=== PATIENT | male | born 1995 | race Caucasian/White ===

== ENCOUNTER 2017-08-29 17:26 | Emergency (ER) | payer OTHER, BC ==
[2017-08-29] MEDS ORDERED: Lidocaine 2% with EPINEPHrine 1:100,000 20 ML MDV INFILT ONE (17:27)
[2017-08-29] MEDS ORDERED: Sodium Chloride 0.9% 1,000 ML IV ONE (17:59)
[2017-08-29] MEDS ORDERED: Acetaminophen/HYDROcodone 325-5 MG Tab PO ONE (21:23)
--- NOTE | 2017-08-30 13:24 | CT ---
INDICATION: 2,000-pound engine block tipped off stand and fell onto left lateral chest. Superficial laceration. No evidence for pneumothorax clinically. Chest wall contusion clinically. CT CHEST WITHOUT CONTRAST: Spiral 2.5-mm axial sections were obtained through the chest with sagittal and coronal reconstructions, 08/29/2017. No comparisons were available. Total Exam DLP = 340.49 mGy-cm. An active infiltrate, effusion, contusion, or pneumothorax was not identified. No rib fractures were identified. The spine appears to be intact. No mediastinal masses or free fluid collections were identified. Upper abdomen was grossly normal. In the subcutaneous tissues of the lower neck and anterior shoulder, there is evidence of free air within those tissues, suggesting a significant soft tissue laceration in that area. This is at the level of the clavicle and extends to the level of the inferior glenoid labrum on the left. No other specific abnormalities were identified. IMPRESSION: Subcutaneous air is noted in the area of injury on the left, anteriorly on the left in the subcutaneous tissues and surrounding muscle bundles, at the level of the clavicle and shoulder. Report was called to Dr. Franklin at 1905 hours, 08/29/2017. [facility]
--- NOTE | 2017-08-30 15:13 | ER ---
DATE SEEN: 08/29/2017 TIME SEEN: The patient was seen at 1750 hours. HISTORY OF PRESENT ILLNESS: Oscar was working at [employer], and he happened to experience a [id number] engine fall off its stand and struck him on the left chest. No shortness of breath. He has a laceration to the anterior chest. His tetanus is up to date. ALLERGIES: No allergies. PAST MEDICAL HISTORY: No other serious illnesses. No hospitalizations or surgeries. REVIEW OF SYSTEMS: Negative. PRIMARY SURVEY: 1. Airway, intact air exchange. Patent airway. 2. Breathing, bilateral breath sounds. No absence of breath sounds. Good symmetrical motion of the chest. No tracheal tug or tracheal deviation. 3. CARDIOVASCULAR: The patient's blood pressure 145/71, heart rate 80, respirations 18, oxygen saturation 100%, and temperature 36.1 degrees centigrade. The patient has good peripheral pulses. He is alert and talking to me. 4. Deformity-[place] scale is 15. The patient is alert. No difficulty breathing. 5. EXTREMITIES-No evidence for ecchymosis, swelling, tenderness, or chest wall asymmetry on his chest. He has a laceration to left anterior chest, 9 cm long. It is anterior upper lateral pectoral region. No crepitus noted. PHYSICAL EXAMINATION: VITAL SIGNS: As noted. HEENT: Alert. PERRLA intact. Pharynx without abnormality. Gag intact. He has no accessory muscle of breathing. LUNGS: Clear on auscultation without rales, rhonchi, or wheezes. HEART: S1, S2. No murmur. ABDOMEN: Soft. No guarding. CHEST: No chest wall tenderness. No subcutaneous crepitans. EXTREMITIES: Without abnormality. Deep tendon reflexes normal in upper and lower extremities. Strength in the upper and lower extremities intact. NEUROLOGIC: Cranial nerves 2 through 12 intact. Oriented x3. IMAGING: Chest wall CT, no evidence for contusion, compromise of chest wall. No pneumothorax, no hemothorax, and no hemopericardium. No abnormality of the great vessels. PROCEDURE: The wound was cleansed generously with water for 10 minutes with surgical scrub brush and then injected with 2% lidocaine with epinephrine. Once the anesthesia was appropriate, the wound edges were freshened up by removing 3 mm of each wound edge. This 9 cm wound became a 10 cm wound. Then, the wound was closed with interrupted 3-0 Vicryl subcuticular stitches, 8 stitches, and then 9 interrupted 4-0 Ethilon stitches of the dermis. The patient tolerated the procedure well. He has mild discomfort of his chest wall. No morbidities. No pneumothorax. No hemothorax or hemopericardium. DIAGNOSES: 1. Left chest contusion. 2. Left chest 10 centimeter laceration, double layer closure. PLAN: The patient is cardiovascularly stable. Sutures to stay in for 14 days. Use bacitracin on a daily basis and may shower. Follow up with his doctor in a week. Additional note, there was mild air within the left upper chest subcutaneous tissue on the CAT scan. /[id number] FRANKO/CASSIE AUGUSTINE
== END 2017-08-29 21:40 | disposition home or self-care (01) ==
LOC: FB.ED 17:26
DX: S21.112A Laceration without foreign body of left front wall of thorax without penetration into thoracic cavity, initial encounter (principal); W20.8XXA Other cause of strike by thrown, projected or falling object, initial encounter; Y92.79 Other farm location as the place of occurrence of the external cause; Y99.9 Unspecified external cause status
CPT/HCPCS: 12034; 71250; 96360; 99283; A9270; J7040